=== PATIENT | female | born 1935 | race Caucasian/White ===

== ENCOUNTER 2016-10-04 14:23 | Day surgery (SDC) | payer MEDICARE ==
[~2016-10-04 14:23] MED LIST: AMLO5TAB2 PO; ASPI-973 PO; LEVO50TA6 PO; LISI-567 PO; LORA0.5T PO; METO25TA6 PO; NITR0.4T6 SL; SIMV20TA4 PO; vit d3 PO
== END 2016-10-04 23:59 | disposition home or self-care (01) ==
LOC: END 14:23
PROVIDERS: ATTEND Internal Medicine Gastroenterology
DX: Z43.1 Encounter for attention to gastrostomy (principal)